=== PATIENT | male | born 1985 | race Caucasian/White ===

== ENCOUNTER 2021-08-20 13:18 | Emergency (ER) | payer OTHER ==
[~2021-08-20] VITALS: Ht 167.6 cm; Wt 70.5 kg
[~2021-08-20 13:18] MED LIST: NOCURR
[2021-08-20 17:01] VITALS: BP 123/87
== END 2021-08-20 17:27 | disposition home or self-care (01) ==
LOC: EMS 13:18
DX: S93.401A Sprain of unspecified ligament of right ankle, initial encounter (principal); M25.561 Pain in right knee; M25.562 Pain in left knee; X50.1XXA Overexertion from prolonged static or awkward postures, initial encounter; Y93.89 Activity, other specified; Y92.89 Other specified places as the place of occurrence of the external cause; Y99.8 Other external cause status
CPT/HCPCS: 29515; 72040; 99284; 73562-TC; 73610-TC; Z7502